=== PATIENT | female | born 1975 | race Caucasian/White ===

== ENCOUNTER 2022-02-09 13:19 | Emergency (ER) | payer MEDICAID ==
[~2022-02-09] VITALS: Ht 147.3 cm; Wt 60.0 kg
[2022-02-09] MEDS ORDERED: FLUO20CA36 PO (13:44)
[2022-02-09 14:20] VITALS: BP 108/71
== END 2022-02-09 14:35 | disposition home or self-care (01) ==
LOC: EMS 13:24
DX: Z76.0 Encounter for issue of repeat prescription (principal); F32.A Depression, unspecified
CPT/HCPCS: 99281; Z7502